=== PATIENT | female | born 1970 | race Caucasian/White ===

== ENCOUNTER 2022-02-14 12:03 | Emergency (ER) | payer OTHER ==
[~2022-02-14 12:03] MED LIST: MEDROL 4MG DOSEP4 MG PO
[2022-02-14 13:29] LABS: BASOPHIL 0.2 % (0-2); EOSINOPHIL 0.7 % (0-5); HCT 40.9 % (37.0-47.0); HGB 13.7 g/dl (12.5-16.0); LYMPHOCYTE 27.9 % (15-48); MCH 30.6 pg (25.0-31.0); MCHC 33.5 g/dL (32.0-36.0); MCV 91.3 fL (78.0-100.0); MONOCYTE 5.7 % (0-12); MPV 9.7 fL (6.0-9.5); NEUTROPHIL 65.2 % (41-80); NRBC 0; PLT 384 K/uL (150-400); RBC 4.48 M/uL (4.20-5.40); RDW 12.6 % (11.5-14.0); WBC 12.7 K/uL (4.0-10.5)
[2022-02-14 13:30] LABS: BILIRUBIN NEGATIVE (NEGATIVE); BLOOD 2+ Ery/uL (NEGATIVE); CLARITY CLEAR (CLEAR); COLOR YELLOW (YELLOW); GLUCOSE (U) NORMAL (NORMAL); LEUKOCYTES NEGATIVE Leu/uL (NEGATIVE); NITRITE NEGATIVE (NEGATIVE); PROTEIN NEGATIVE (NEGATIVE); UROBILINOGEN 0.2 mg/dL (0.2-1.0)
[2022-02-14 13:32] LABS: BACTERIA TRACE; URINARY WBC RARE
[2022-02-14 13:50] LABS: ALBUMIN 4.3 g/dL (3.4-5.0); BILIRUBIN - TOTAL 0.3 mg/dL (0.2-1.0); BUN/CREAT RATIO (CALC) 11.3 RATIO; CREATININE 0.97 mg/dL (0.51-0.95); FT4 (FREE T4) 1.4 ng/dL (0.76-1.46); GLOBULIN (CALCULATION) 3.8 g/dL; MAGNESIUM 1.9 mg/dL (1.8-2.4); POTASSIUM 3.4 mmol/L (3.5-5.1); TOTAL PROTEIN 8.1 g/dL (6.4-8.2)
[2022-02-14 14:12] LABS: LACTIC ACID 1.2 mmol/L (0.4-1.9)
[2022-02-14] MEDS ORDERED: PERCOCET 5-3251 EACH PO ×2 (16:53→17:30)
[2022-02-14] MEDS ORDERED: METRONIDAZOLE500 MG PO (17:32)
[2022-02-14] MEDS ORDERED: ONDANSETRON ODT4 MG PO (17:32)
[2022-02-14] MEDS ORDERED: LEVAQUIN500 MG PO (17:32)
== END 2022-02-14 18:00 | disposition home or self-care (01) ==
LOC: FER 12:03
PROVIDERS: Emergency Medicine
DX: K57.32 Diverticulitis of large intestine without perforation or abscess without bleeding (principal); F17.210 Nicotine dependence, cigarettes, uncomplicated; Z88.0 Allergy status to penicillin; Z88.1 Allergy status to other antibiotic agents
CPT/HCPCS: 36415; 80053; 81001; 82550; 83605; 83690; 83735; 84145; 84439; 84443; 84484; 85025; 93005; J1170; J1956; J2405; J7120; Q9967

== ENCOUNTER 2022-02-17 14:39 | Emergency (ER) | payer OTHER ==
[~2022-02-17 14:39] MED LIST changes: +LEVAQUIN500 MG PO; +METRONIDAZOLE500 MG PO; +ONDANSETRON ODT4 MG PO; +PERCOCET 5-3251 EACH PO
[2022-02-17 15:34] LABS: BASOPHIL 0.2 % (0-2); EOSINOPHIL 0.9 % (0-5); HCT 38.8 % (37.0-47.0); HGB 13.3 g/dl (12.5-16.0); LYMPHOCYTE 24.4 % (15-48); MCH 30.9 pg (25.0-31.0); MCHC 34.3 g/dL (32.0-36.0); MCV 90.2 fL (78.0-100.0); MONOCYTE 5.5 % (0-12); MPV 9.6 fL (6.0-9.5); NEUTROPHIL 68.8 % (41-80); NRBC 0; PLT 376 K/uL (150-400); RDW 12.6 % (11.5-14.0); WBC 12.2 K/uL (4.0-10.5)
[2022-02-17 15:52] LABS: BILIRUBIN - TOTAL 0.1 mg/dL (0.2-1.0); BUN/CREAT RATIO (CALC) 12.5 RATIO; CREATININE 0.96 mg/dL (0.51-0.95); GLOBULIN (CALCULATION) 3.4 g/dL; MAGNESIUM 1.9 mg/dL (1.8-2.4); POTASSIUM 3.4 mmol/L (3.5-5.1); TOTAL PROTEIN 7.4 g/dL (6.4-8.2)
[2022-02-17 16:11] LABS: BILIRUBIN NEGATIVE (NEGATIVE); BLOOD TRACE-INTACT Ery/uL (NEGATIVE); CLARITY CLEAR (CLEAR); COLOR YELLOW (YELLOW); GLUCOSE (U) NORMAL (NORMAL); LEUKOCYTES TRACE Leu/uL (NEGATIVE); NITRITE NEGATIVE (NEGATIVE); PROTEIN NEGATIVE (NEGATIVE); UROBILINOGEN 0.2 mg/dL (0.2-1.0)
[2022-02-17 16:17] LABS: BACTERIA TRACE; URINARY RBC RARE; URINARY WBC RARE
== END 2022-02-17 16:56 | disposition home or self-care (01) ==
LOC: FER 14:39
PROVIDERS: Emergency Medicine
DX: R00.2 Palpitations (principal); R94.6 Abnormal results of thyroid function studies; F17.200 Nicotine dependence, unspecified, uncomplicated; Z88.0 Allergy status to penicillin; Z88.5 Allergy status to narcotic agent
CPT/HCPCS: 36415; 71045; 80053; 81001; 83735; 84145; 84443; 84484; 85025; 93005

== ENCOUNTER 2022-03-31 19:55 | Emergency (ER) | payer OTHER ==
[~2022-03-31 19:55] MED LIST changes: +BENADRYL25 MG PO; +CRESTOR10 MG PO; +DIAZEPAM 5MG TAB5 MG PO; +ESTRACE0.5 MG PO; +PROBIOTIC PO; +PROGESTERONE100 MG PO; +SEROQUEL 25MG T25 MG PO; +SYNTHROID88 MCG PO; +VIT D3 PO
[2022-03-31 20:17] LABS: BASOPHIL 0.3 % (0-2); EOSINOPHIL 2.1 % (0-5); HGB 14.1 g/dl (12.5-16.0); LYMPHOCYTE 41.7 % (15-48); MCH 31.1 pg (25.0-31.0); MCHC 34.4 g/dL (32.0-36.0); MCV 90.5 fL (78.0-100.0); MPV 9.3 fL (6.0-9.5); NRBC 0; PLT 368 K/uL (150-400); RBC 4.53 M/uL (4.20-5.40); RDW 12.8 % (11.5-14.0); WBC 12.1 K/uL (4.0-10.5)
[2022-03-31 20:24] LABS: MONOCYTE 6.7 % (0-12)
[2022-03-31 20:29] LABS: PROTHROMBIN TIME 12.6 SECONDS (11.8-13.4); PTT 30.3 SECONDS (24.4-34.7)
[2022-03-31 20:46] LABS: ALBUMIN 4.4 g/dL (3.4-5.0); BILIRUBIN - TOTAL 0.2 mg/dL (0.2-1.0); BUN/CREAT RATIO (CALC) 15.1 RATIO; CREATININE 0.93 mg/dL (0.51-0.95); GLOBULIN (CALCULATION) 3.1 g/dL; MAGNESIUM 2.3 mg/dL (1.8-2.4); POTASSIUM 3.6 mmol/L (3.5-5.1); TOTAL PROTEIN 7.5 g/dL (6.4-8.2)
[2022-03-31] MEDS ORDERED: NYSTATIN SUSP1 ML/ML SSP (22:47)
== END 2022-03-31 23:23 | disposition home or self-care (01) ==
LOC: FER 19:55
PROVIDERS: Internal Medicine
DX: R19.7 Diarrhea, unspecified (principal); R10.32 Left lower quadrant pain; R10.12 Left upper quadrant pain; B37.9 Candidiasis, unspecified; F17.210 Nicotine dependence, cigarettes, uncomplicated; Z88.0 Allergy status to penicillin; Z88.5 Allergy status to narcotic agent; Z88.6 Allergy status to analgesic agent
CPT/HCPCS: 36415; 71250; 80053; 83690; 83735; 84145; 84439; 84443; 84484; 85025; 85610; 85730; 87045; 87046; 87449; 93005; J3475; J7120

== ENCOUNTER → 2022-04-05 | Day surgery (SDC) | payer OTHER ==
[~2022-04-05] VITALS: Ht 180.1 cm; Wt 72.5 kg
[~2022-04-05] MED LIST changes: +DICYCLOMINE HCL20 MG PO; +NYSTATIN SUSP1 ML/ML SSP
[2022-04-05 12:18] LABS: HCG (URINE) SCREEN NEGATIVE (NEGATIVE)
== END | disposition home or self-care (01) ==
LOC: FAS 02-28 09:00
PROVIDERS: Anesthesiology
DX: K58.0 Irritable bowel syndrome with diarrhea (principal); K57.30 Diverticulosis of large intestine without perforation or abscess without bleeding; Z86.010 Personal history of colon polyps; Z88.0 Allergy status to penicillin; Z88.8 Allergy status to other drugs, medicaments and biological substances
CPT/HCPCS: 84703; J1610; J2250; J2704; J7120

== ENCOUNTER 2022-04-30 09:28 | Emergency (ER) | payer OTHER ==
[2022-04-30 11:03] LABS: BILIRUBIN NEGATIVE (NEGATIVE); BLOOD TRACE-INTACT Ery/uL (NEGATIVE); CLARITY CLEAR (CLEAR); COLOR YELLOW (YELLOW); GLUCOSE (U) NORMAL (NORMAL); LEUKOCYTES NEGATIVE Leu/uL (NEGATIVE); NITRITE NEGATIVE (NEGATIVE); PROTEIN NEGATIVE (NEGATIVE); UROBILINOGEN 0.2 mg/dL (0.2-1.0)
[2022-04-30 11:04] LABS: BASOPHIL 0.3 % (0-2); EOSINOPHIL 1.2 % (0-5); HCT 43.3 % (37.0-47.0); HGB 14.8 g/dl (12.5-16.0); LYMPHOCYTE 37.9 % (15-48); MCH 31.2 pg (25.0-31.0); MCHC 34.2 g/dL (32.0-36.0); MCV 91.2 fL (78.0-100.0); MONOCYTE 6.7 % (0-12); MPV 8.9 fL (6.0-9.5); NEUTROPHIL 53.6 % (41-80); NRBC 0; PLT 387 K/uL (150-400); RBC 4.75 M/uL (4.20-5.40); RDW 12.7 % (11.5-14.0); WBC 9.8 K/uL (4.0-10.5)
[2022-04-30 11:25] LABS: CREATININE 0.97 mg/dL (0.51-0.95); POTASSIUM 3.8 mmol/L (3.5-5.1)
[2022-04-30 11:34] LABS: BILIRUBIN - TOTAL 0.2 mg/dL (0.2-1.0); BUN/CREAT RATIO (CALC) 9.3 RATIO; GLOBULIN (CALCULATION) 3.2 g/dL; TOTAL PROTEIN 7.2 g/dL (6.4-8.2)
[2022-04-30 11:43] LABS: BACTERIA 1+; URINARY WBC RARE
[2022-04-30] MEDS ORDERED: ONDANSETRON ODT4 MG PO (12:24)
== END 2022-04-30 12:40 | disposition home or self-care (01) ==
LOC: FER 09:28
PROVIDERS: Emergency Medicine
DX: E86.0 Dehydration (principal); T36.3X5A Adverse effect of macrolides, initial encounter; Z88.0 Allergy status to penicillin; Z88.1 Allergy status to other antibiotic agents; Z88.5 Allergy status to narcotic agent
CPT/HCPCS: 36415; 80053; 81001; 83690; 85025; J7030

== ENCOUNTER 2022-05-27 10:31 | Emergency (ER) | payer OTHER ==
[2022-05-28] MEDS ORDERED: COLESTID1 GM PO (09:00)
== END 2022-05-27 11:28 | disposition home or self-care (01) ==
LOC: FER 10:31
DX: F41.9 Anxiety disorder, unspecified (principal); K29.70 Gastritis, unspecified, without bleeding; F17.210 Nicotine dependence, cigarettes, uncomplicated; Z88.0 Allergy status to penicillin; Z88.1 Allergy status to other antibiotic agents; Z88.5 Allergy status to narcotic agent
CPT/HCPCS: 93005

== ENCOUNTER → 2022-05-31 | Day surgery (SDC) | payer OTHER ==
[~2022-05-31] VITALS: Ht 177.8 cm; Wt 66.2 kg
[~2022-05-31] MED LIST changes: +COLESTID1 GM PO
[2022-05-31 12:20] LABS: ALBUMIN 4.1 g/dL (3.4-5.0); BILIRUBIN - TOTAL 0.3 mg/dL (0.2-1.0); CREATININE 0.88 mg/dL (0.51-0.95); POTASSIUM 4.2 mmol/L (3.5-5.1); TOTAL PROTEIN 7.1 g/dL (6.4-8.2)
[2022-05-31 13:15] LABS: HCG (URINE) SCREEN POSITIVE (NEGATIVE)
== END | disposition home or self-care (01) ==
LOC: FAS 10:53
PROVIDERS: Surgery
DX: K31.9 Disease of stomach and duodenum, unspecified (principal); K29.70 Gastritis, unspecified, without bleeding; E78.00 Pure hypercholesterolemia, unspecified; E03.9 Hypothyroidism, unspecified; F17.210 Nicotine dependence, cigarettes, uncomplicated; Z86.010 Personal history of colon polyps; Z88.1 Allergy status to other antibiotic agents
CPT/HCPCS: 36415; 80053; 84702; 84703; J2250; J2704; J7120